=== PATIENT | male | born 1990 | race Caucasian/White ===

== ENCOUNTER 2022-10-06 15:19 | Emergency (ER) | payer BC ==
[2022-10-06] MEDS ORDERED: Bacitracin Oint 1 GM U/D Packet TOP ONE (15:50)
[2022-10-06] MEDS ORDERED: Lidocaine 1% 5 ML VIAL INJECT ONE (16:10)
== END 2022-10-06 16:06 | disposition home or self-care (01) ==
LOC: LB.ED 15:19
DX: S61.213A Laceration without foreign body of left middle finger without damage to nail, initial encounter (principal); W26.8XXA Contact with other sharp object(s), not elsewhere classified, initial encounter
CPT/HCPCS: 12001; 99282